=== PATIENT | female | born 1960 | race Caucasian/White ===

== ENCOUNTER 2018-04-21 13:22 | Emergency (ER) | payer MEDICAID, OTHER ==
[~2018-04-21] VITALS: Ht 157.5 cm; Wt 63.5 kg
[2018-04-21] MEDS ORDERED: ONDANSETRON 4 MG/2 ML VIAL ONE (13:58)
[2018-04-21] MEDS ORDERED: HYDROMORPHONE 2 MG/1 ML DISP.SYRIN ONE (13:58)
[2018-04-21] MEDS ORDERED: ONDANSETRON 4 MG/2 ML VIAL IM ONE (14:00)
[2018-04-21] MEDS ORDERED: HYDROMORPHONE 1 MG/1 ML DISP.SYRIN IM ONE (14:00)
--- NOTE | 2018-04-21 14:37 | NUR ---
Patient discharged to home in stable conditon. Written and verbal after care instructions given. Patient verbalizes understanding of instructions.PT SAYS PAIN HAS COME DOWN TO TOLERABLE LEVEL OF 3/10.PT NOT DRIVING. PT ACCOMPANED BY .
[2018-04-21 14:38] VITALS: BP 101/71
== END 2018-04-21 14:45 | disposition home or self-care (01) ==
LOC: ER 13:22
DX: M54.40 Lumbago with sciatica, unspecified side (principal); E78.00 Pure hypercholesterolemia, unspecified; E11.9 Type 2 diabetes mellitus without complications
CPT/HCPCS: 96372 ×2; 99283; J1170; J2405; A4663